=== PATIENT | female | born 1960 | race Caucasian/White ===

== ENCOUNTER 2021-09-20 02:25 | Day surgery (SDC) | payer OTHER ==
[~2021-09-20 02:25] MED LIST: CIPR500 PO; DIPATR PO; IBUP600 PO; IBUP800; IBUP800 PO; LOPE2C PO; METR59TL TOP; NITRSPRAY SL; Nitrostat0.4 MG SL; SULTRIDS PO; TRIA80TC
== END 2021-09-20 22:59 | disposition home or self-care (01) ==
LOC: WOUND 02:25
DX: I83.028 Varicose veins of left lower extremity with ulcer other part of lower leg (principal); L97.828 Non-pressure chronic ulcer of other part of left lower leg with other specified severity; E11.51 Type 2 diabetes mellitus with diabetic peripheral angiopathy without gangrene; I70.203 Unspecified atherosclerosis of native arteries of extremities, bilateral legs; L03.116 Cellulitis of left lower limb; I10 Essential (primary) hypertension; Z88.0 Allergy status to penicillin
CPT/HCPCS: G0463

== ENCOUNTER 2021-09-23 01:35 | Day surgery (SDC) | payer OTHER | END 2021-09-23 23:22 | disposition home or self-care (01) | LOC: WOUND 01:35 | DX: I83.028 Varicose veins of left lower extremity with ulcer other part of lower leg (principal); L97.829 Non-pressure chronic ulcer of other part of left lower leg with unspecified severity; I87.2 Venous insufficiency (chronic) (peripheral); I70.203 Unspecified atherosclerosis of native arteries of extremities, bilateral legs | CPT/HCPCS: 82947 ==

== ENCOUNTER 2021-09-23 16:49 | Emergency (ER) | payer OTHER ==
[~2021-09-23] VITALS: Ht 154.9 cm; Wt 115.7 kg
[2021-09-23 18:26] LABS: BASOPHILS ABSOLUTE AUTO 0.03 K/mm3 (0.00-0.23); BASOPHILS PERCENT AUTO 0 % (0-2); EOSINOPHILS ABSOLUTE AUTO 0.07 K/mm3 (0.00-0.68); EOSINOPHILS PERCENT AUTO 1 % (0-6); Hematocrit 42.6 % (33.0-51.0); Hemoglobin 12.7 g/dL (11.5-16.0); IMMATURE GRAN ABSOLUTE AUTO 0.04 K/mm3 (0.00-0.10); IMMATURE GRAN PERCENT AUTO 1 % (0-1); LYMPHOCYTES ABSOLUTE AUTO 1.97 K/mm3 (0.84-5.20); LYMPHOCYTES PERCENT AUTO 26 % (21-46); MONOCYTES ABSOLUTE AUTO 0.51 K/mm3 (0.16-1.47); MONOCYTES PERCENT AUTO 7 % (4-13); Mean Corpuscular HGB 23.4 pg (26.0-34.0); Mean Corpuscular HGB Conc 29.8 g/dL (31.5-36.5); Mean Corpuscular Volume 79 fL (80-100); NEUTROPHILS ABSOLUTE AUTO 4.83 K/mm3 (1.96-9.15); NEUTROPHILS PERCENT AUTO 65 % (41-73); Platelet Count 434 K/mm3 (150-400); RDW Coefficient Variation 15.4 % (11.7-14.2); RDW Standard Deviation 43.7 fL (35.1-46.3); Red Blood Cell Count 5.43 M/mm3 (3.80-5.20); White Blood Cell Count 7.45 K/mm3 (4.00-11.30)
[2021-09-23 18:48] LABS: Alanine Aminotransfer (ALT/SGP 58 U/L (12-78); Albumin, Blood 3.2 g/dL (3.4-5.0); Albumin/Globulin Ratio 0.7 (0.8-1.8); Alk Phos 181 U/L (50-136); Anion Gap 11 mmol/L (6-16); Aspartate Aminotrans (AST/SGOT 49 U/L (12-37); Beta-hydroxybutyrate 19.5 mg/dL (0.2-2.8); Bilirubin, Total 0.4 mg/dL (0.1-1.0); Blood Urea Nitrogen 22 mg/dL (8-24); Bun/Creatinine Ratio 33.4 (12.0-20.0); CO2, Blood 27 mmol/L (21-32); Calcium, Blood 9.4 mg/dL (8.5-10.1); Chloride, Blood 95 mmol/L (98-108); Creatinine, Blood 0.66 mg/dL (0.40-1.00); Globulin, Blood 4.4 g/dL (2.2-4.0); Glomerular Filtration Rate >60 (60-); Glucose, Blood 496 mg/dL (70-99); Potassium, Blood 3.7 mmol/L (3.5-5.5); Sodium, Blood 133 mmol/L (136-145); Total Protein, Blood 7.6 g/dL (6.4-8.2)
[2021-09-23 20:34] LABS: Base Excess Venous 1.5 mmol/L; Bicarbonate Venous 25.3 mmol/L (24.0-30.0); PCO2 Venous 42.9 mmHg (38-42); PO2 Venous 59.8 mmHg (38-42)
[2021-09-23 21:09] LABS: Source, Urine Clean Catch
[2021-09-23 21:11] LABS: Bilirubin, Urine Neg (Neg); Blood, Urine 1+ (Neg); Glucose Qualitative, Urine 4+ (Neg); Ketones, Urine 3+ (Neg); Leukocyte Esterase, Urine 2+ (Neg); Nitrite, Urine Neg (Neg); Protein, Urine 2+ (Neg); Specific Gravity, Urine 1.015 (1.003-1.022); Urobilinogen, Urine NORM (Normal)
[2021-09-23 21:17] LABS: Appearance, Urine Hazy (Clear); Color, Urine Pale Yellow (P-Yellow)
[2021-09-23 21:18] LABS: Bacteria Many /hpf
[2021-09-23 21:19] LABS: Squamous Epithelial Cells Mod /hpf (Few); White Blood Cells, Urine 25-50 /hpf (0-5); Yeast/Fungi Urine Few /hpf
== END 2021-09-23 23:23 | disposition home or self-care (01) ==
LOC: ER 16:49
PROVIDERS: Physician Assistant
DX: E11.65 Type 2 diabetes mellitus with hyperglycemia (principal); Z88.0 Allergy status to penicillin; Z79.899 Other long term (current) drug therapy; K21.9 Gastro-esophageal reflux disease without esophagitis; I25.2 Old myocardial infarction; F17.200 Nicotine dependence, unspecified, uncomplicated
CPT/HCPCS: 80053; 81001; 82010; 82803; 82947; 85025; 87077; 87086; 87186; 93005; 93010; 99285-25; J7030

== ENCOUNTER 2021-09-27 02:07 | Day surgery (SDC) | payer OTHER | END 2021-09-27 23:30 | disposition home or self-care (01) | LOC: WOUND 02:07 | DX: L97.821 Non-pressure chronic ulcer of other part of left lower leg limited to breakdown of skin (principal); I87.2 Venous insufficiency (chronic) (peripheral); E11.51 Type 2 diabetes mellitus with diabetic peripheral angiopathy without gangrene; I70.203 Unspecified atherosclerosis of native arteries of extremities, bilateral legs; E11.65 Type 2 diabetes mellitus with hyperglycemia; R60.0 Localized edema; L03.116 Cellulitis of left lower limb | CPT/HCPCS: 82947 ==

== ENCOUNTER 2021-10-04 01:26 | Day surgery (SDC) | payer OTHER | END 2021-10-04 23:48 | disposition home or self-care (01) | LOC: WOUND 01:26 | DX: L97.221 Non-pressure chronic ulcer of left calf limited to breakdown of skin (principal); I87.2 Venous insufficiency (chronic) (peripheral); E11.51 Type 2 diabetes mellitus with diabetic peripheral angiopathy without gangrene; I70.203 Unspecified atherosclerosis of native arteries of extremities, bilateral legs; L03.116 Cellulitis of left lower limb; R60.0 Localized edema; E11.65 Type 2 diabetes mellitus with hyperglycemia | CPT/HCPCS: 82947; G0463 ==

== ENCOUNTER 2023-02-20 19:48 | Inpatient (IN) | payer OTHER ==
[~2023-02-20] VITALS: Ht 154.9 cm; Wt 98.9 kg
[2023-02-20 22:26] LABS: BASOPHILS ABSOLUTE AUTO 0.06 K/mm3 (0.00-0.23); BASOPHILS PERCENT AUTO 0 % (0-2); EOSINOPHILS ABSOLUTE AUTO 0.46 K/mm3 (0.00-0.68); EOSINOPHILS PERCENT AUTO 3 % (0-6); Hematocrit 36.1 % (33.0-51.0); Hemoglobin 11.2 g/dL (11.5-16.0); IMMATURE GRAN ABSOLUTE AUTO 0.11 K/mm3 (0.00-0.10); IMMATURE GRAN PERCENT AUTO 1 % (0-1); LYMPHOCYTES ABSOLUTE AUTO 2.43 K/mm3 (0.84-5.20); LYMPHOCYTES PERCENT AUTO 17 % (21-46); MONOCYTES ABSOLUTE AUTO 0.88 K/mm3 (0.16-1.47); MONOCYTES PERCENT AUTO 6 % (4-13); Mean Corpuscular HGB 25.6 pg (26.0-34.0); Mean Corpuscular Volume 82 fL (80-100); Mean Platelet Volume 8.6 fL (9.1-12.4); NEUTROPHILS ABSOLUTE AUTO 10.43 K/mm3 (1.96-9.15); NEUTROPHILS PERCENT AUTO 73 % (41-73); Platelet Count 812 K/mm3 (150-400); RDW Coefficient Variation 19.3 % (11.7-14.2); RDW Standard Deviation 57.6 fL (35.1-46.3); Red Blood Cell Count 4.38 M/mm3 (3.80-5.20); White Blood Cell Count 14.37 K/mm3 (4.00-11.30)
[2023-02-20 22:54] LABS: Magnesium, Blood 1.6 mg/dL (1.6-2.4)
[2023-02-20 22:58] LABS: Albumin, Blood 2.6 g/dL (3.4-5.0); Albumin/Globulin Ratio 0.6 (0.8-1.8); Bilirubin, Total 0.2 mg/dL (0.1-1.0); Bun/Creatinine Ratio 21.4 (12.0-20.0); Calcium, Blood 9.4 mg/dL (8.5-10.1); Creatinine, Blood 0.52 mg/dL (0.40-1.00); Globulin, Blood 4.2 g/dL (2.2-4.0); Potassium, Blood 2.6 mmol/L (3.5-5.5); Thyroid Stimulating Hormone 1.4 uIU/mL (0.360-4.800); Total Protein, Blood 6.8 g/dL (6.4-8.2)
[2023-02-20 23:04] LABS: Source, Urine Straight Cath
[2023-02-20 23:05] LABS: Influenza A, PCR NEGATIVE (NEGATIVE); Influenza B, PCR NEGATIVE (NEGATIVE); Resp Syncytial Virus, PCR NEGATIVE (NEGATIVE); SARS-Cov-2 (COVID-19) PCR, MMC NEGATIVE (NEGATIVE)
[2023-02-20 23:30] LABS: Appearance, Urine Cloudy (Clear); Bilirubin, Urine Neg (Neg); Blood, Urine 1+ (Neg); Color, Urine Yellow (P-Yellow); Glucose Qualitative, Urine Neg (Neg); Ketones, Urine Neg (Neg); Leukocyte Esterase, Urine 2+ (Neg); Nitrite, Urine Pos (Neg); Protein, Urine 2+ (Neg); Urobilinogen, Urine NORM (Normal)
[2023-02-20 23:53] LABS: Bacteria Many /hpf; Red Blood Cells, Urine 0-2 /hpf (0-2); Squamous Epithelial Cells Many /hpf (Few); White Blood Cells, Urine 50-100 /hpf (0-5)
[2023-02-21 02:11] LABS: BASOPHILS ABSOLUTE AUTO 0.05 K/mm3 (0.00-0.23); BASOPHILS PERCENT AUTO 0 % (0-2); EOSINOPHILS ABSOLUTE AUTO 0.33 K/mm3 (0.00-0.68); EOSINOPHILS PERCENT AUTO 2 % (0-6); Hematocrit 36.3 % (33.0-51.0); Hemoglobin 11.1 g/dL (11.5-16.0); IMMATURE GRAN ABSOLUTE AUTO 0.11 K/mm3 (0.00-0.10); IMMATURE GRAN PERCENT AUTO 1 % (0-1); LYMPHOCYTES ABSOLUTE AUTO 2.16 K/mm3 (0.84-5.20); LYMPHOCYTES PERCENT AUTO 16 % (21-46); MONOCYTES ABSOLUTE AUTO 0.81 K/mm3 (0.16-1.47); MONOCYTES PERCENT AUTO 6 % (4-13); Mean Corpuscular HGB 25.3 pg (26.0-34.0); Mean Corpuscular HGB Conc 30.6 g/dL (31.5-36.5); Mean Corpuscular Volume 83 fL (80-100); Mean Platelet Volume 8.3 fL (9.1-12.4); NEUTROPHILS ABSOLUTE AUTO 10.23 K/mm3 (1.96-9.15); NEUTROPHILS PERCENT AUTO 75 % (41-73); Platelet Count 704 K/mm3 (150-400); RDW Coefficient Variation 19.7 % (11.7-14.2); RDW Standard Deviation 58.8 fL (35.1-46.3); Red Blood Cell Count 4.39 M/mm3 (3.80-5.20); White Blood Cell Count 13.69 K/mm3 (4.00-11.30)
[2023-02-21 02:28] LABS: International Normalized Ratio 0.94; Prothrombin Time Results 9.9 Sec (9.7-11.5)
[2023-02-21 02:43] LABS: Albumin, Blood 2.4 g/dL (3.4-5.0); Albumin/Globulin Ratio 0.6 (0.8-1.8); Bilirubin, Total 0.2 mg/dL (0.1-1.0); Bun/Creatinine Ratio 20.6 (12.0-20.0); Calcium, Blood 8.9 mg/dL (8.5-10.1); Creatinine, Blood 0.49 mg/dL (0.40-1.00); Globulin, Blood 3.9 g/dL (2.2-4.0); Total Protein, Blood 6.3 g/dL (6.4-8.2)
[2023-02-21 03:02] VITALS: BP 148/86
--- NOTE | 2023-02-21 04:35 | NUR ---
ADMIT/SHIFT SUMMARY: PATIENT ADMIT TO PCU 19 AROUND 0345. USED SLIDE SHEET TO TRANSFER PATIENT IS IMMOBILE AT BASELINE AND LIVES IN A VERY SMALL TRAILER WHICH SHE IS UNABLE TO MOVE AROUND IN BECAUSE OF HER "STUFF". SHE STATES SHE JUST SITS IN HER RECLINER. DENIES NUMBNESS/TINGLING. COMPLAINS OF BILATERAL KNEE PAIN, SAYING "THEY HIT MY KNEES TRANSFERING ME TO THE HOSPITAL". MEDICATED PER EMAR WITH TYLENOL. ALERT AND ORIENTED X4. AT TIMES SAYING OFF THE WALL COMMENTS. ON ROOM AIR SATING MID 90'S. LUNGS SOUNDING CLEAR AND DIM IN BASES. DENIES SOB/COUGH. EVEN AND UNLABORED RESPIRATIONS. NO TELE. BP STABLE. DENIES CHEST PAIN/PRESSURE. NO EDEMA NOTED. PPP. BOWEL TONES PRESENT. LOOSE STOOLS REPORTED PER ED. PURWICK IN PLACE. ATTENDS C/D/I. PATIENT STATES SHE USES UNDERWEAR AT HOME TO GO TO BATHROOM. SKIN COVERED IN RED RASH/EXCORATIONS. OPEN PRESSURE WOUNDS TO BILATERAL GLUTERAL FOLDS, LEFT OUTER HIP, UPPER RIGHT BACK, AND BILATERAL HEELS. OTHER WOUNDS NOTED TO BILATERAL BREASTS AND RIGHT THUMB. RED/EXCORIATIONS IN ALL FOLDS WITH SCRATCH BOYKIN THROUGHOUT. ALL WOUNDS DOCUMENTED IN CHART. CLEAN AND DRESSED. BED BATH ON ARRIVAL. HEEL PROTECTORS IN PLACE. NS AND IV KCL INFUSING PER EMAR. ABX INFUSED. CALL LIGHT IN REACH. UNABLE TO COMPLETE MED REC, PHARMACY CLOSED AT THIS TIME AND PATIENT DOES NOT RECALL MEDICATIONS.
--- NOTE | 2023-02-21 06:22 | NUR ---
PATIENT REQUESTING HAIR BE TRIMMED BY RETAIL PROPERTY MANAGER. RETAIL PROPERTY MANAGER ABLE TO TRIM PATIENTS HAIR TO LIKING. POTASSIUM INFUSED PER EMAR. NS CONTINUES TO INFUSE. VITAL SIGNS REMAIN STABLE. Q2 TURNING AND NEEDED. PATIENT SLEEPING AT THIS TIME.
[2023-02-21 07:58] VITALS: BP 115/94
[2023-02-21 08:18] LABS: BASOPHILS ABSOLUTE AUTO 0.04 K/mm3 (0.00-0.23); BASOPHILS PERCENT AUTO 0 % (0-2); EOSINOPHILS ABSOLUTE AUTO 0.21 K/mm3 (0.00-0.68); EOSINOPHILS PERCENT AUTO 2 % (0-6); Hematocrit 34.6 % (33.0-51.0); Hemoglobin 10.9 g/dL (11.5-16.0); IMMATURE GRAN PERCENT AUTO 1 % (0-1); LYMPHOCYTES ABSOLUTE AUTO 2.26 K/mm3 (0.84-5.20); LYMPHOCYTES PERCENT AUTO 18 % (21-46); MONOCYTES ABSOLUTE AUTO 0.78 K/mm3 (0.16-1.47); MONOCYTES PERCENT AUTO 6 % (4-13); Mean Corpuscular HGB 25.5 pg (26.0-34.0); Mean Corpuscular HGB Conc 31.5 g/dL (31.5-36.5); Mean Corpuscular Volume 81 fL (80-100); Mean Platelet Volume 8.3 fL (9.1-12.4); NEUTROPHILS ABSOLUTE AUTO 9.47 K/mm3 (1.96-9.15); NEUTROPHILS PERCENT AUTO 74 % (41-73); Platelet Count 744 K/mm3 (150-400); RDW Coefficient Variation 19.4 % (11.7-14.2); RDW Standard Deviation 57.3 fL (35.1-46.3); Red Blood Cell Count 4.28 M/mm3 (3.80-5.20); White Blood Cell Count 12.86 K/mm3 (4.00-11.30)
[2023-02-21 09:01] LABS: Albumin, Blood 2.3 g/dL (3.4-5.0); Albumin/Globulin Ratio 0.6 (0.8-1.8); Bilirubin, Total 0.2 mg/dL (0.1-1.0); Calcium, Blood 8.6 mg/dL (8.5-10.1); Creatinine, Blood 0.5 mg/dL (0.40-1.00); Potassium, Blood 3.5 mmol/L (3.5-5.5); Total Protein, Blood 6.3 g/dL (6.4-8.2)
--- NOTE | 2023-02-21 10:41 | NUR ---
TRANSFER REPORT CALLED TO JAYASHREE FRANCISCO ON MEDICAL FLOOR PT TO BE TRANSFERED VIA BED.
--- NOTE | 2023-02-21 11:58 | NUR ---
PT ARRIVED TO ROOM 359 AOX4 AND COOPERATIVE OF CARE. PT SETTLED INTO ROOM WITH CALL LIGHT IN REACH AND BED ALARM IN PLACE. NO DISTRESS NOTED WILL CONTINUE TO MONITOR.
[2023-02-21 14:48] VITALS: BP 115/73
[2023-02-21] MEDS ORDERED: ATOR80 PO (15:03)
[2023-02-21] MEDS ORDERED: METO25ER PO (15:05)
[2023-02-21] MEDS ORDERED: METF500 PO (15:06)
[2023-02-21] MEDS ORDERED: ALOGLIPTIN25 M7 PO (15:08)
[2023-02-21] MEDS ORDERED: LOSA50 PO (15:10)
[2023-02-21] MEDS ORDERED: OMEP20ER PO (15:10)
--- NOTE | 2023-02-21 16:42 | NUR ---
PT HAS HAD NO ACUTE CHANGES. UPON FIRST ASSESSMENT SHE SEEMS MORE ALERT AND ORIENTED AROUND 3. YOU SPEND TIME WITH THE PT SHE SAYS A LOT OF THINGS THAT ARE RANDOM AND DO NOT MAKE SENSE. WITHOUT FAMILY INPUT CAN NOT TELL IF THIS IS HER BASELINE OR NOT. PT COMPLAINED OF OVERALL BODY PAIN AND WAS TREATED PER EMAR. PT ALSO HAD AN EPISODE OF LOOSE STOOL. IF WE HAVE ANYMORE DOCTOR WILL BE NOTIFIED. NO DISTRESS NOTED AT THIS TIME AND PT IS CALLING APPROPRIATELY. WILL CONTINUE TO MONITOR.
[2023-02-21 19:57] VITALS: BP 128/73
[2023-02-22 04:55] VITALS: BP 165/83
--- NOTE | 2023-02-22 05:19 | NUR ---
REPORT RECEIVED, A/O VSS PLEASENT PT WHO MAKES NEEDS KNOWN, HAS PAIN TO LOWER EXTREMITIES AND DESIRAE OUT WHEN SHE IS REPOSITIONED, PT CAN VERY EASILY BE DISTRACTED OR REDIRECTED WHEN SHOWING ANXIETY OR PAIN, HER BEHAVIOR IS SLIGHTLY DISPROPORTIONATE IN RESPONSE. PT GAIVEN PAIN MEDICATION REPOSITIONED AND ALLOWED TO SLEEP. PT SLEPT FOR SEVERAL HOURS, BED DRY AND PURWIK IN PLACE.
[2023-02-22 07:43] VITALS: BP 121/78
[2023-02-22 08:04] LABS: BASOPHILS ABSOLUTE AUTO 0.06 K/mm3 (0.00-0.23); BASOPHILS PERCENT AUTO 1 % (0-2); EOSINOPHILS PERCENT AUTO 5 % (0-6); Hematocrit 31.2 % (33.0-51.0); Hemoglobin 9.5 g/dL (11.5-16.0); IMMATURE GRAN ABSOLUTE AUTO 0.13 K/mm3 (0.00-0.10); IMMATURE GRAN PERCENT AUTO 1 % (0-1); LYMPHOCYTES ABSOLUTE AUTO 2.14 K/mm3 (0.84-5.20); LYMPHOCYTES PERCENT AUTO 20 % (21-46); MONOCYTES ABSOLUTE AUTO 0.63 K/mm3 (0.16-1.47); MONOCYTES PERCENT AUTO 6 % (4-13); Mean Corpuscular HGB 25.1 pg (26.0-34.0); Mean Corpuscular HGB Conc 30.4 g/dL (31.5-36.5); Mean Corpuscular Volume 83 fL (80-100); Mean Platelet Volume 8.6 fL (9.1-12.4); NEUTROPHILS ABSOLUTE AUTO 7.37 K/mm3 (1.96-9.15); NEUTROPHILS PERCENT AUTO 68 % (41-73); Platelet Count 635 K/mm3 (150-400); RDW Coefficient Variation 19.7 % (11.7-14.2); RDW Standard Deviation 58.9 fL (35.1-46.3); Red Blood Cell Count 3.78 M/mm3 (3.80-5.20); White Blood Cell Count 10.83 K/mm3 (4.00-11.30)
[2023-02-22 08:33] LABS: Albumin/Globulin Ratio 0.6 (0.8-1.8); Bilirubin, Total 0.1 mg/dL (0.1-1.0); Bun/Creatinine Ratio 22.3 (12.0-20.0); Calcium, Blood 8.2 mg/dL (8.5-10.1); Creatinine, Blood 0.49 mg/dL (0.40-1.00); Globulin, Blood 3.6 g/dL (2.2-4.0); Potassium, Blood 3.6 mmol/L (3.5-5.5); Total Protein, Blood 5.6 g/dL (6.4-8.2)
[2023-02-22 15:37] VITALS: BP 132/90
[2023-02-22 19:29] VITALS: BP 91/63
--- NOTE | 2023-02-22 20:33 | NUR ---
SHIFT SUMMARY: GIUSEPPE IS A&OX3. VSS, NO ACUTE EVENTS THIS SHIFT. SHE IS TOLERATING PO INTAKE WELL, REPORTS MINIMAL PAIN RELIEF WITH THE TRAMADOL, AND USES THE CALL LIGHT APPROPRIATELY. ATTENDS IN PLACE FOR URINARY AND FECAL INCONTINENCE, HOWEVER PT WAS ABLE TO PURPOSEFULLY URINATE THIS SHIFT. IV TO L AC PATENT, FLUIDS INFUSING. SHE IS LYING IN BED WITH THE CALL LIGHT IN REACH. REPORT WAS GIVEN TO CHAPERON RN.
[2023-02-23 04:41] VITALS: BP 106/71
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
[2023-02-23 07:21] VITALS: BP 143/88
[2023-02-23 08:27] LABS: BASOPHILS ABSOLUTE AUTO 0.05 K/mm3 (0.00-0.23); BASOPHILS PERCENT AUTO 1 % (0-2); EOSINOPHILS ABSOLUTE AUTO 0.64 K/mm3 (0.00-0.68); EOSINOPHILS PERCENT AUTO 7 % (0-6); Hematocrit 32.1 % (33.0-51.0); Hemoglobin 9.8 g/dL (11.5-16.0); IMMATURE GRAN ABSOLUTE AUTO 0.16 K/mm3 (0.00-0.10); IMMATURE GRAN PERCENT AUTO 2 % (0-1); LYMPHOCYTES ABSOLUTE AUTO 1.78 K/mm3 (0.84-5.20); LYMPHOCYTES PERCENT AUTO 19 % (21-46); MONOCYTES ABSOLUTE AUTO 0.54 K/mm3 (0.16-1.47); MONOCYTES PERCENT AUTO 6 % (4-13); Mean Corpuscular HGB 25.1 pg (26.0-34.0); Mean Corpuscular HGB Conc 30.5 g/dL (31.5-36.5); Mean Corpuscular Volume 82 fL (80-100); Mean Platelet Volume 8.3 fL (9.1-12.4); NEUTROPHILS ABSOLUTE AUTO 6.11 K/mm3 (1.96-9.15); NEUTROPHILS PERCENT AUTO 66 % (41-73); Platelet Count 563 K/mm3 (150-400); RDW Coefficient Variation 19.2 % (11.7-14.2); RDW Standard Deviation 57.7 fL (35.1-46.3); White Blood Cell Count 9.28 K/mm3 (4.00-11.30)
[2023-02-23 08:40] LABS: Calcium, Blood 8.8 mg/dL (8.5-10.1); Creatinine, Blood 0.4 mg/dL (0.40-1.00); Potassium, Blood 3.7 mmol/L (3.5-5.5)
[2023-02-23 16:10] VITALS: BP 136/75
--- NOTE | 2023-02-23 18:40 | NUR ---
SHIFT SUMMARY PT IS ALERT AND ORIENTED. DELUSIONAL. DIARRHEA. NO ACUTE CHANGES. BED IS IN THE LOWEST POSITION WITH CALL LIGHT IN REACH
[2023-02-23 20:10] VITALS: BP 120/83
[2023-02-24 03:52] VITALS: BP 176/70
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
[2023-02-24 07:17] VITALS: BP 116/71
[2023-02-24 08:04] LABS: BASOPHILS ABSOLUTE AUTO 0.07 K/mm3 (0.00-0.23); BASOPHILS PERCENT AUTO 1 % (0-2); EOSINOPHILS ABSOLUTE AUTO 0.79 K/mm3 (0.00-0.68); EOSINOPHILS PERCENT AUTO 8 % (0-6); Hematocrit 31.7 % (33.0-51.0); Hemoglobin 9.7 g/dL (11.5-16.0); IMMATURE GRAN ABSOLUTE AUTO 0.22 K/mm3 (0.00-0.10); IMMATURE GRAN PERCENT AUTO 2 % (0-1); LYMPHOCYTES ABSOLUTE AUTO 2.47 K/mm3 (0.84-5.20); LYMPHOCYTES PERCENT AUTO 25 % (21-46); MONOCYTES ABSOLUTE AUTO 0.55 K/mm3 (0.16-1.47); MONOCYTES PERCENT AUTO 6 % (4-13); Mean Corpuscular HGB 25.3 pg (26.0-34.0); Mean Corpuscular HGB Conc 30.6 g/dL (31.5-36.5); Mean Corpuscular Volume 83 fL (80-100); Mean Platelet Volume 8.7 fL (9.1-12.4); NEUTROPHILS ABSOLUTE AUTO 5.73 K/mm3 (1.96-9.15); NEUTROPHILS PERCENT AUTO 58 % (41-73); Platelet Count 618 K/mm3 (150-400); RDW Coefficient Variation 19.2 % (11.7-14.2); RDW Standard Deviation 58.1 fL (35.1-46.3); Red Blood Cell Count 3.84 M/mm3 (3.80-5.20); White Blood Cell Count 9.83 K/mm3 (4.00-11.30)
[2023-02-24 08:24] LABS: Bun/Creatinine Ratio 43.9 (12.0-20.0); Calcium, Blood 8.8 mg/dL (8.5-10.1); Creatinine, Blood 0.46 mg/dL (0.40-1.00); Potassium, Blood 3.5 mmol/L (3.5-5.5)
--- NOTE | 2023-02-24 09:00 | NUR ---
pt laying in bed awake a/ox 2 to 3, she is making nonsensical statements, but understood her medications, is cooperative with care, follows commands, lungs are clear a bit dim in bases, resp even and unlabored, on r/a, no cough noted, hrr, murmur noted, 1 to 2+ edema noted to b/l le, ppp+2, cap refill <3sec, vs stable, afebrile, piv site is clear and patent to lac, infusing ns@75mls/hr, btx4, abd round soft nontender, voids via purwick at this time, incont of stool, briefs in place, has multiple wounds to skin, dressings in place, moves arms, can move feet, but very weak, two person to turn, dianna, call light in reach.
[2023-02-24 17:13] VITALS: BP 133/71
--- NOTE | 2023-02-24 19:08 | NUR ---
pt continues to say off things not in line with conversation, when asked a direct question she goes on to something else and has to be redirected several times to get a straight answer, had a bedbath today, medicated for pain several times, no further changes this shift. call light in reach.
[2023-02-24 19:21] VITALS: BP 131/97
[2023-02-25 02:58] VITALS: BP 136/94
--- NOTE | 2023-02-25 04:25 | NUR ---
SHIFT SUMMARY PT ALERT AND ORIENTED TO PERSON, PLACE, AND SELF. TALKING NONSENSICAL AT TIMES. PT IS COMPLIANT WITH CARE. PT C/O INSOMNIA; MEDICATED PER EMAR. DENIES CHEST PAIN/PRESSURE/TIGHTNESS AT THIS TIME. PT HAS HAD NO COMPLAINT OF PAIN AT THIS TIME. BED IS LOCKED IN LOWEST POSITION, CALL LIGHT IN REACH. NO ACUTE CHANGES NOTED, NO S/S OF DISTRESS AT THIS TIME.
[2023-02-25 05:37] LABS: BASOPHILS ABSOLUTE AUTO 0.09 K/mm3 (0.00-0.23); BASOPHILS PERCENT AUTO 1 % (0-2); EOSINOPHILS ABSOLUTE AUTO 0.85 K/mm3 (0.00-0.68); EOSINOPHILS PERCENT AUTO 7 % (0-6); Hematocrit 32.1 % (33.0-51.0); Hemoglobin 10.2 g/dL (11.5-16.0); IMMATURE GRAN ABSOLUTE AUTO 0.33 K/mm3 (0.00-0.10); IMMATURE GRAN PERCENT AUTO 3 % (0-1); LYMPHOCYTES ABSOLUTE AUTO 2.53 K/mm3 (0.84-5.20); LYMPHOCYTES PERCENT AUTO 20 % (21-46); MONOCYTES ABSOLUTE AUTO 0.77 K/mm3 (0.16-1.47); MONOCYTES PERCENT AUTO 6 % (4-13); Mean Corpuscular HGB 25.9 pg (26.0-34.0); Mean Corpuscular HGB Conc 31.8 g/dL (31.5-36.5); Mean Corpuscular Volume 82 fL (80-100); Mean Platelet Volume 8.8 fL (9.1-12.4); NEUTROPHILS PERCENT AUTO 64 % (41-73); Platelet Count 651 K/mm3 (150-400); RDW Standard Deviation 56.2 fL (35.1-46.3); Red Blood Cell Count 3.94 M/mm3 (3.80-5.20); White Blood Cell Count 12.57 K/mm3 (4.00-11.30)
[2023-02-25 06:11] LABS: Bun/Creatinine Ratio 59.1 (12.0-20.0); Calcium, Blood 9.2 mg/dL (8.5-10.1); Creatinine, Blood 0.47 mg/dL (0.40-1.00); Potassium, Blood 4.1 mmol/L (3.5-5.5)
[2023-02-25 07:18] VITALS: BP 99/71
[2023-02-25 15:48] VITALS: BP 112/74
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
[2023-02-25 19:13] VITALS: BP 117/81
[2023-02-26 03:06] VITALS: BP 125/77
--- NOTE | 2023-02-26 04:38 | NUR ---
SHIFT SUMMARY PT IS ALERT AND ORIENTED TO PERSON, PLACE, SELF. SHE HAS NON-SENSICAL SPEECH AT TIMES. PAIN ASSESSED; MEDICATED PER EMAR X1. REDDENED AREA IN GROIN CLEANED AND MEDICATED POWDER APPLIED. PT REQUESTED FOR SOMETHING TO HELP WITH HER INSOMNIA; MELATONIN ADMINISTERED PER EMAR. SHE DENIES CHEST PAIN/PRESSURE/TIGHTNESS AT THIS TIME. SHE HAS SLEPT ON AND OFF T/O SHIFT; RESPIRATIONS EQUAL AND UNLABORED. PT IS INCONTINENT WITH PUREWICK IN PLACE. BED IS LOCKED IN THE LOWEST POSITION WITH CALL LIGHT IN REACH. ACUTE CHANGES OR S/S OF DISTRESS AT THIS TIME.
[2023-02-26 04:52] LABS: BASOPHILS ABSOLUTE AUTO 0.08 K/mm3 (0.00-0.23); BASOPHILS PERCENT AUTO 1 % (0-2); EOSINOPHILS ABSOLUTE AUTO 0.81 K/mm3 (0.00-0.68); EOSINOPHILS PERCENT AUTO 8 % (0-6); Hematocrit 31.6 % (33.0-51.0); Hemoglobin 9.7 g/dL (11.5-16.0); IMMATURE GRAN ABSOLUTE AUTO 0.25 K/mm3 (0.00-0.10); IMMATURE GRAN PERCENT AUTO 3 % (0-1); LYMPHOCYTES ABSOLUTE AUTO 2.83 K/mm3 (0.84-5.20); LYMPHOCYTES PERCENT AUTO 29 % (21-46); MONOCYTES ABSOLUTE AUTO 0.57 K/mm3 (0.16-1.47); MONOCYTES PERCENT AUTO 6 % (4-13); Mean Corpuscular HGB 25.7 pg (26.0-34.0); Mean Corpuscular HGB Conc 30.7 g/dL (31.5-36.5); Mean Corpuscular Volume 84 fL (80-100); Mean Platelet Volume 8.8 fL (9.1-12.4); NEUTROPHILS PERCENT AUTO 53 % (41-73); Platelet Count 572 K/mm3 (150-400); RDW Coefficient Variation 19.4 % (11.7-14.2); RDW Standard Deviation 58.4 fL (35.1-46.3); Red Blood Cell Count 3.78 M/mm3 (3.80-5.20); White Blood Cell Count 9.64 K/mm3 (4.00-11.30)
[2023-02-26 05:12] LABS: Bun/Creatinine Ratio 53.8 (12.0-20.0); Calcium, Blood 9.2 mg/dL (8.5-10.1); Creatinine, Blood 0.56 mg/dL (0.40-1.00); Potassium, Blood 3.8 mmol/L (3.5-5.5)
[2023-02-26 07:30] VITALS: BP 113/68
[2023-02-26 14:36] VITALS: BP 117/81
--- NOTE | 2023-02-26 18:27 | NUR ---
SHIFT SUMMARY PT AxOx4 WITH INTERMITTENT NONSENSICAL COMMENTS. PT IS PLEASANT AND COOPERATIVE WITH CARE. PT WORKED WITH PHYSICAL AND OCCUPATIONAL THERAPY TODAY. WAS UNABLE TO STAND UP OR AMBULATE D/T SEVERE BLE DECONDITIONING. FLUIDS DC'D. PT RECEIVED IV ABX. WOUND CARE AND DRESSING CHANGES COMPLETED THIS SHIFT. PT WAS MEDICATED FOR PAIN x1 WITH REPORTED RELIEF. PT IS CURRENTLY SITTING UP IN BED FINISHING DINNER. DENIES ANY NEEDS AT THIS TIME. CALL LIGHT IN REACH.
[2023-02-26 19:53] VITALS: BP 139/77
--- NOTE | 2023-02-27 03:33 | NUR ---
SHIFT SUMMARY: PT IS ALERT AND ORIENTED WITH SOME CONFUSION AND FLIGHT OF IDEAS, HISTORY OF DEVELOPMENTAL DELAY. PT IS CALM AND COOPERATIVE WITH CARE. PT CALLS APPROPRIATELY. PT NOT STRONG ENOUGH TO GET OUT OF BED AT THIS TIME. PT INCONTINENT, PUREWICK SET TO SUCTION. PT REPORTS PAIN ON ONE OCCASION, GAVE PRN TRAMADOL. PT DENIES NAUSEA, VOMITING, AND SOB. PT REQUESTED SLEEPING PILL, GAVE PRN MELATONIN. PT SLEPT MUCH OF THE NIGHT WHEN NOT DISTURBED. PT'S IV LEAKING, NEW IV PLACED AND OLD ONE REMOVED. NO ACUTE CHANGES OR COMPLICATIONS OVERNIGHT. BED IN LOW POSITION, CALL LIGHT WITHIN REACH. WILL CONTINUE TO MONITOR.
[2023-02-27 04:33] VITALS: BP 114/70
[2023-02-27 04:56] LABS: BASOPHILS ABSOLUTE AUTO 0.07 K/mm3 (0.00-0.23); BASOPHILS PERCENT AUTO 1 % (0-2); EOSINOPHILS ABSOLUTE AUTO 0.84 K/mm3 (0.00-0.68); EOSINOPHILS PERCENT AUTO 9 % (0-6); Hematocrit 31.7 % (33.0-51.0); Hemoglobin 9.7 g/dL (11.5-16.0); IMMATURE GRAN ABSOLUTE AUTO 0.14 K/mm3 (0.00-0.10); IMMATURE GRAN PERCENT AUTO 2 % (0-1); LYMPHOCYTES ABSOLUTE AUTO 2.61 K/mm3 (0.84-5.20); LYMPHOCYTES PERCENT AUTO 27 % (21-46); MONOCYTES ABSOLUTE AUTO 0.55 K/mm3 (0.16-1.47); MONOCYTES PERCENT AUTO 6 % (4-13); Mean Corpuscular HGB 25.6 pg (26.0-34.0); Mean Corpuscular HGB Conc 30.6 g/dL (31.5-36.5); Mean Corpuscular Volume 84 fL (80-100); Mean Platelet Volume 8.9 fL (9.1-12.4); NEUTROPHILS ABSOLUTE AUTO 5.32 K/mm3 (1.96-9.15); NEUTROPHILS PERCENT AUTO 56 % (41-73); Platelet Count 573 K/mm3 (150-400); RDW Coefficient Variation 19.4 % (11.7-14.2); RDW Standard Deviation 58.3 fL (35.1-46.3); Red Blood Cell Count 3.79 M/mm3 (3.80-5.20); White Blood Cell Count 9.53 K/mm3 (4.00-11.30)
[2023-02-27 05:17] LABS: Magnesium, Blood 1.7 mg/dL (1.6-2.4)
[2023-02-27 05:37] LABS: Albumin, Blood 2.3 g/dL (3.4-5.0); Albumin/Globulin Ratio 0.6 (0.8-1.8); Bilirubin, Total 0.2 mg/dL (0.1-1.0); Bun/Creatinine Ratio 53.7 (12.0-20.0); Calcium, Blood 9.2 mg/dL (8.5-10.1); Creatinine, Blood 0.52 mg/dL (0.40-1.00); Globulin, Blood 3.7 g/dL (2.2-4.0); Potassium, Blood 3.9 mmol/L (3.5-5.5)
[2023-02-27 07:16] VITALS: BP 119/81
[2023-02-27 14:51] VITALS: BP 130/77
--- NOTE | 2023-02-27 17:41 | NUR ---
SHIFT SUMMARY PT AXO TO SELF, PLACE AND SITUATION ALTHOUGH PT HAS FLIGHT OF IDEAS AND MAKES COMMENTS THAT ARE NOT REALITY BASED. DRESSINGS TO BLE, LEFT HIM AND RIGHT UPPER BACK CHANGED THIS SHIFT. PT MEDICATED FOR PAIN X1 THIS SHIFT. IV PATENT AND INFUSING PER EMAR. PT TOLERATING DIET ORDER WITH GOOD APPETITE. PURWICK IN PLACE, PATENT AND DRAINING TO SUCTION. TURN Q2, BED IN LOW POSITION, CALL LIGHT WITHIN REACH.
[2023-02-27 19:21] VITALS: BP 133/74
[2023-02-28 04:52] VITALS: BP 107/66
--- NOTE | 2023-02-28 06:52 | NUR ---
Shift Summary Pt AOx3-4, no strange comments this shift but she is talkative. Wound dressings were changed during the day yesterday and remain C/D/I. Incontinent voids being managed by gary. Pt c/o of 10/10 full body pain at start of shift but appeared calm and comfortable, after recieving Tramadol she slept well t/o the night. Rcving NS @ 125. Bedbound.
[2023-02-28 07:20] VITALS: BP 123/71
[2023-02-28 15:15] VITALS: BP 128/82
[2023-02-28 19:37] VITALS: BP 120/74
--- NOTE | 2023-02-28 20:06 | NUR ---
SHIFT SUMMARY- PT STILL AWAITING PLACEMENT. SHE IS ON CONTIONUIOUS IVF, NOT ON TELE. PT IS A LIFT PT TO GET FROM BED TO THE CHAIR. PUREWICK CATH IN PLACE. PT ALERT AND ORIENTED TO SELF, WITH LOTS OF CONFUSION. SOMETINGE SHE HAS PRESSURED SPEECH AND WORD SALAD, SHE WRITES NOTES TO STAFF THAT MAKE THE SAME AMOUNT OF SENSE. BEDSIDE REPORT COMPLETED WITH NIGHT RN. PT HEELS VISUALIZED UNDER THE MEPILEX THERE IS A WOUND ON THE RIGHT THE LEFT APEARS SWOLLEN. DRESSING ON BILATERAL BREASTS AND RIGHT UPPER BACK ARE C/D/I AT THE TIME OF SHIFT CHANGE. PT AC/HS BG AND RECIEVED INSULIN TODAY. PT IN BED, PUREWICK IN PLACE PATENT AND DRAINING CLEAR YELLOW URINE, IF INFUSING LFA, GERARDO LIGHT IN REACH NO S&S OF DISTRESS NOTED AT THE TIME OF BEDSIDE REPORT.
[2023-03-01 04:08] VITALS: BP 126/89
--- NOTE | 2023-03-01 05:03 | NUR ---
SHIFT SUMMARY: NO ACUTE EVENTS. ALERT, DELUSIONAL AND CONFUSED AT TIMES. C/O GENERALIZED 03/20 PAIN; MEDICATED PER EMAR WITH NO REPORTED RELIEF, BUT SLEPT SOUNDLY AFTER PAIN MED ADMINISTRATION. PUREWICK IN PLACE FOR URINARY INCONTINENCE. NO BM THIS SHIFT. HEEL PROTECTIVE DRESSINGS IN PLACE BILATERALLY. DRESSING ON BACK AND BILATERAL BREASTS INTACT.
[2023-03-01 07:15] VITALS: BP 124/87
[2023-03-01 15:18] VITALS: BP 131/77
--- NOTE | 2023-03-01 19:39 | NUR ---
SHIFT SUMMARY- PT ALERT AND ORIENTED TO SELF. SHE IS VERY CONFUSED. SHE CAN MAKE HER NEEDS KNOWN. SHE HAS SEVERAL DRESSINGS THAT NEED TO BE CHANGED THIS EVENING SHE PULLED THEM OFF LATER IN THE DAY. PASSED ON TO NIGHT RN IN BEDSIDE REPORT. CALLED DR FULTON THIS EVENING THE PT WAS STILL RUNNING IVF BUT IS EATING AND DRINKING WELL. ORDER RECIEVED TO DC IVF. ALSO SPOKE ABOUT LABS. PT HAS BEEN GETTING PO POTASSIUM 40MEQ BID AND THERE HAVE BEEN NO LABS SINCE THE . OK TO GIVE EVENING POTASSIUM. PT IN BED, CALL LIGHT IN REACH NO S&S OF DISTRESS NOTED AT THE TIME OF BEDSIDE REPORT.
[2023-03-01 19:40] VITALS: BP 125/76
[2023-03-02 05:18] VITALS: BP 123/77
--- NOTE | 2023-03-02 06:11 | NUR ---
SHIFT SUMMARY PT IS ALERT AND ORIENTED TO PERSON, PLACE AND SELF. PT IS DELUSIONAL AND CONFUSED AT TIME. PT C/O PAIN AND INSOMNIA; MEDICATED PER EMAR. PT SLEPT OFF AND ON T/O WITH RESPIRATIONS EVEN AND UNLABORED. PT DENIES CHEST PAIN/PRESSURE/TIGHTNESS. PT IS PLEASANT AND COOPERATIVE WITH CARE. BED IS LOCKED IN THE LOWEST POSITION WITH CALL LIGHT IN REACH. NO S/S OF DISTRESS NOTED.
[2023-03-02 08:06] VITALS: BP 125/87
[2023-03-02 17:19] VITALS: BP 136/83
--- NOTE | 2023-03-02 17:52 | NUR ---
SHIFT SUMMARY Pt remains A&O x2-3 this shift. Confused at times, hyperverbal. VSS. Resp even nonlabored. Gen pain managed with po Tylenol. Purewick in place with yellow output. Dressings to wounds CDI. IV infiltrate this am. Telephone orders from Dr. Rowland No IV needed. Repositioned in bed this shift. Safety maintained. Call light in reach. Will continue to monitor this shift.
[2023-03-02 23:32] VITALS: BP 104/73
[2023-03-03] VITALS (9 sets, daily range): BP systolic 100–125; BP diastolic 62–81
--- NOTE | 2023-03-03 06:40 | NUR ---
SHIFT SUMMARY NO CHANGES NOTED THROUGH THE NIGHT, VSS, ON RA, RESP UNLABORED, PT WAS COOPERATIVE W/CARE, Q2 REPOSITONING, PURE WICK IN PLACE, URINE OUTPUT WNL, TOLERATING PO INTAKE, CALL LIGHT IN REACH
--- NOTE | 2023-03-03 18:09 | NUR ---
SHIFT SUMMARY: GIUSEPPE IS A&O, DELUSIONS NOTED. PT HAS BEEN PLEASANT AND COOPERATIVE THIS SHIFT. SHE IS TOLERATING PO INTAKE WELL, DENIES IMPROVEMENT IN PAIN LEVEL WITH MEDICATIONS PER MAR. ATTENDS AND PUREWICK IN PLACE. SHE USES THE CALL LIGHT APPROPRIATELY. SKIN MARKEDLY IMPROVED FROM THE PREVIOUS TIME THIS RN CARED FOR PT. SHE IS ABLE TO MOVE HERSELF IN BED WITH MINIMAL ASSISTANCE, FEEDS HERSELF INDEPENDENTLY, AND ALERTS STAFF NEEDED FOR ELIMINATION. SHE IS LYING IN BED WITH THE CALL LIGHT IN REACH. WCTM UNTIL REPORT IS GIVEN TO GRAIN CLEANER AND TRANSFER OPERATOR RN.
--- NOTE | 2023-03-03 19:26 | NUR ---
NURSE NOTE AWAKE, PUREWICK IN USE. AM RN REPORTEDD ALL DRESSINGS WERE CHANGED THIS AM. RESPS EVEN. NO NOTED S/S ACUTE DISTRESS. VERBAL RESPONSE SOMEWHAT CHILDLIKE. CALL LIGHT IN REACH.
[2023-03-04 02:57] VITALS: BP 105/84
--- NOTE | 2023-03-04 03:46 | NUR ---
BIOMATHEMATICIAN SUMMARY VSS. BEHAVIOR AND INTERACTIONS WITH STAFF SOMEWHAT CHILDLIKE. PT REPORTEDLY DEVELOPMENTALLY DELAYED. PUREWICK IN USE AND ATTENDS ON FOR INCONTINENCE. LOOSE STOOL CONTINUES. ABLE TO REPOSITION SELF IN BED. REMAINS ON BEDREST THROUGHOUT NOCT FOR SAFETY SHE REPORTEDLY IS UNABLE TO AMBULATE, AND IS A LIFT PT. DRESSINGS OF BODY AREAS CDI. HAS BEEN RESTING QUIETLY WITH FEW INTERRUPTIONS. CALL LIGHT IN REACH. WILL CONTINUE TO MONITOR.
[2023-03-04 07:57] VITALS: BP 116/69
[2023-03-04 16:19] VITALS: BP 110/66
--- NOTE | 2023-03-04 18:45 | NUR ---
SHIFT SUMMARY PT AxOx3 WITH INTERM DELUSIONAL EXPRESSIVE LANGUAGE. PT IS PLEASANT AND COOPERATIVE WITH CARE. PT CURRENTLY AWAITING PLACEMENT FOR LTC. WOUND CARE AND DRESSING CHANGES COMPLETED TODAY. PT REQUESTING A BRA D/T FRICTION ON BREASTS NEAR HEALING WOUNDS. PT SPOKE WITH HER BROTHER ON THE PHONE TODAY TO REQUEST FOOD AND CLOTHING. PT REMAINS WEAK IN BLE WITH LIFT ASSIST FOR TRANSFERING. PT ABLE TO MOVE AROUND IN BED FAIRLY EFFICIENTLY. REMINDERS AND ASSISTED WITH Q2 TURNS. PT CURRENTLY RESTING IN BED. CALL LIGHT IN REACH. DENIES ANY NEEDS AT THIS TIME.
[2023-03-04 19:27] VITALS: BP 126/83
--- NOTE | 2023-03-05 03:14 | NUR ---
BUSINESS AND MARKETING TEACHER SUMMARY VSS. DRESSINGS CDI. TOLERATED HS MEDS WELL. 2 UNITS OF INSULIN ADMIN FOR HS BLOOD SUGAR 260. ABLE TO REPOSITION SELF EASILY BUT REQUESTS ASSIST AT TIMES. CONTINUES TO INTERACT WITH STAFF WITH CHILDLIKE COMMENTS, REPORTED HX OF DEVELOPMENTALLY DELAYED. HAS BEEN RESTING QUIETLY WITH FEW INTERRUPTIONS SINCE HS. CALL LIGHT IN REACH. WILL CONTINUE TO MONITOR
[2023-03-05 04:32] VITALS: BP 110/72
[2023-03-05 07:52] VITALS: BP 124/97
[2023-03-05 08:57] LABS: BASOPHILS ABSOLUTE AUTO 0.06 K/mm3 (0.00-0.23); BASOPHILS PERCENT AUTO 1 % (0-2); EOSINOPHILS ABSOLUTE AUTO 0.63 K/mm3 (0.00-0.68); EOSINOPHILS PERCENT AUTO 6 % (0-6); Hematocrit 37.2 % (33.0-51.0); Hemoglobin 11.6 g/dL (11.5-16.0); IMMATURE GRAN ABSOLUTE AUTO 0.05 K/mm3 (0.00-0.10); IMMATURE GRAN PERCENT AUTO 1 % (0-1); LYMPHOCYTES ABSOLUTE AUTO 2.04 K/mm3 (0.84-5.20); LYMPHOCYTES PERCENT AUTO 20 % (21-46); MONOCYTES ABSOLUTE AUTO 0.59 K/mm3 (0.16-1.47); MONOCYTES PERCENT AUTO 6 % (4-13); Mean Corpuscular HGB Conc 31.2 g/dL (31.5-36.5); Mean Corpuscular Volume 83 fL (80-100); Mean Platelet Volume 8.7 fL (9.1-12.4); NEUTROPHILS ABSOLUTE AUTO 7.02 K/mm3 (1.96-9.15); NEUTROPHILS PERCENT AUTO 68 % (41-73); Platelet Count 520 K/mm3 (150-400); RDW Coefficient Variation 19.3 % (11.7-14.2); Red Blood Cell Count 4.46 M/mm3 (3.80-5.20); White Blood Cell Count 10.39 K/mm3 (4.00-11.30)
[2023-03-05 09:39] LABS: Albumin, Blood 3.1 g/dL (3.4-5.0); Albumin/Globulin Ratio 0.7 (0.8-1.8); Bilirubin, Total 0.3 mg/dL (0.1-1.0); Bun/Creatinine Ratio 52.8 (12.0-20.0); Calcium, Blood 10.2 mg/dL (8.5-10.1); Creatinine, Blood 0.53 mg/dL (0.40-1.00); Globulin, Blood 4.4 g/dL (2.2-4.0); Total Protein, Blood 7.5 g/dL (6.4-8.2)
[2023-03-05 16:31] VITALS: BP 114/75
--- NOTE | 2023-03-05 19:37 | NUR ---
SHIFT SUMMARY: PT A&O X3. PT PLEASANT AND COOPERATIVE WITH CARE. HX DEVELOPMENTALLY DELAYED BUT ABLE TO ANSWER QUESTIONS APPROPRIATELY. OCCASIONALLY GOES OFF ON TANGENTS. NO ACUTE CHANGES THIS SHIFT. PT WORKED WITH PT/OT THIS SHIFT. 5/10 GENERAL PAIN. MEDS PROVIDED PER EMAR. CALL LIGHT IN REACH. BED IN LOWEST POSITION. REPORT GIVEN TO ONCOMING RN.
[2023-03-05 19:48] VITALS: BP 134/74
--- NOTE | 2023-03-06 03:41 | NUR ---
SUMMARY- PT ALERT TO SELF AND PLACE. BEDREST, INCONT B/B, USING PUREWIK. DRESSINGS INTACT TO OPEN AREAS. PT TOLERATING FOOD AND FLUIDS. APPEARED TO HAVE SLEPT MOST OF THE NIGHT. WILL REPORT TO DAY RN
[2023-03-06 05:40] VITALS: BP 105/80
[2023-03-06 07:23] VITALS: BP 125/87
[2023-03-06 16:25] VITALS: BP 112/78
--- NOTE | 2023-03-06 18:02 | NUR ---
SHIFT SUMMARY: PT A&O X2-3. PT WILL OCCASIONALLY GO OFF ON TANGENTS. BANDAGES CHANGED THIS SHIFT ON L. HIP, R. BREAST, AND BACK. PUREWICK REMAINS IN PLACE. PT C/O PAIN THROUGHOUT. MEDICATED PER EMAR. ROTATE Q2. WORKED WITH PT/OT THIS SHIFT. CALL LIGHT IN REACH. BED IN LOWEST POSITION. WILL CONTINUE TO MONITOR.
[2023-03-06 20:22] VITALS: BP 143/68
--- NOTE | 2023-03-07 06:04 | NUR ---
SHIFT SUMMARY: NO ACUTE EVENTS. REQUESTED PAIN MEDICATION AND MELATONIN BEFORE HS. HAS PUREWICK IN PLACE FOR URINE. NO BM THIS SHIFT. SLEPT ALL NIGHT.
[2023-03-07 07:24] VITALS: BP 112/86
--- NOTE | 2023-03-07 07:30 | NUR ---
ASSUMED CARE: PT RESTING IN BED AT THIS TIME. BEATER ENGINEER AT BEDSIDE. NO ACUTE NEEDS OR CONCERNS AT THIS TIME.
--- NOTE | 2023-03-07 19:16 | NUR ---
SHIFT SUMMARY: PT HAS REMAINED IN BED THIS SHIFT WITH FREQUENT REPOSITIONING. AWAITING PLACEMENT FOR DC. PLEASANT AND COOPERATIVE BUT NOT ALWAYS ORIENTED OR APPROPRIATE TO SITUATION. NO ACUTE NEEDS OR CONCERNS AT THIS TIME.
[2023-03-07 20:01] VITALS: BP 126/85
--- NOTE | 2023-03-08 03:03 | NUR ---
SEA CAPTAIN SUMMARY VSS. HS ACCU CHECK 296, COVERAGE OF INSULIN GIVEN. REQUESTED AND RECEIVED PAIN MED, AND SLEEP MED. HAS BEEN RESTING QUIETLY WITH FEW INTERRUTPIONS SINCE. DRESSINGS CONTINUE TO COVER AREAS PT TENDS TO SCRATCH AT. NO NOTED CURRENT OPENINGS OF SKIN. PUREWICK IN USE. ABLE TO CALL FOR ASSIST IF NEEDS TO HAVE BM. CALL LIGHT IN REACH. WILL CONTINUE TO MONITOR.
[2023-03-08 05:29] VITALS: BP 119/78
[2023-03-08 07:14] VITALS: BP 117/75
[2023-03-08 16:07] VITALS: BP 94/72
--- NOTE | 2023-03-08 18:42 | NUR ---
SUMMARY- AAOX2. X1-2 ASSIST. ALL PT'S DRESSINGS (X4) CHANGED THIS SHIFT. PT STAYED IN BED ALL SHIFT. PT DID STAND FOR PT.
--- NOTE | 2023-03-09 03:16 | NUR ---
END OF SHIFT SUMMARY NO EVENTS OVERNIGHT. PT SLEEPING WELL, COMPLIANT WITH ALL HS MEDICATIONS. PRN TRAMADOL GIVEN FOR C/O GENERALIZED PAIN. PRN EFFECTIVE PT APPEARED TO BE RESTING COMFORTABLY IN BED. PURE-WICK IN PLACE. WOUND CARE WAS COMPLETED ON DAY SHIFT. VSS, AFEBRILE. PT CALM AND PLEASANT WITH CARE PROVIDED. CALL LIGHT WITHIN REACH, WCTM.
[2023-03-09 03:30] VITALS: BP 119/77
[2023-03-09 07:16] VITALS: BP 131/88
[2023-03-09 08:01] LABS: BASOPHILS ABSOLUTE AUTO 0.05 K/mm3 (0.00-0.23); BASOPHILS PERCENT AUTO 1 % (0-2); EOSINOPHILS ABSOLUTE AUTO 0.64 K/mm3 (0.00-0.68); EOSINOPHILS PERCENT AUTO 8 % (0-6); Hematocrit 36.3 % (33.0-51.0); Hemoglobin 11.2 g/dL (11.5-16.0); IMMATURE GRAN ABSOLUTE AUTO 0.04 K/mm3 (0.00-0.10); IMMATURE GRAN PERCENT AUTO 1 % (0-1); LYMPHOCYTES PERCENT AUTO 24 % (21-46); MONOCYTES PERCENT AUTO 6 % (4-13); Mean Corpuscular HGB 25.7 pg (26.0-34.0); Mean Corpuscular HGB Conc 30.9 g/dL (31.5-36.5); Mean Corpuscular Volume 83 fL (80-100); NEUTROPHILS PERCENT AUTO 61 % (41-73); Platelet Count 511 K/mm3 (150-400); RDW Standard Deviation 54.6 fL (35.1-46.3); Red Blood Cell Count 4.36 M/mm3 (3.80-5.20); White Blood Cell Count 8.23 K/mm3 (4.00-11.30)
[2023-03-09 08:22] LABS: Bun/Creatinine Ratio 55.1 (12.0-20.0); Calcium, Blood 9.8 mg/dL (8.5-10.1); Creatinine, Blood 0.53 mg/dL (0.40-1.00); Potassium, Blood 3.7 mmol/L (3.5-5.5)
[2023-03-09 14:54] VITALS: BP 127/80
--- NOTE | 2023-03-09 18:20 | NUR ---
NO ACUTE CHANGES, PATIENT PLEASANT ALL DAY, NO IV ACESS, REPOSTIONED SELF IN BED, CONTINENT WITH BED WADE, VSS, PLACEMENT BEING WORKED ON SNF VS FOSTERCARE, PATIENT AGREEABLE TO EITHER, WILL RELAY TO PM RN
[2023-03-09 19:40] VITALS: BP 100/71
[2023-03-10 04:11] VITALS: BP 125/88
--- NOTE | 2023-03-10 06:21 | NUR ---
Shift Summary Pt c/o some dizzyness, slept well t/o the night. Rcvd Tramadol for what she described as 10/10 all over pain before bed, but she was not in any visible distress. She is satisfied with current pain management. Awaiting placement.
[2023-03-10 07:58] VITALS: BP 118/78
[2023-03-10 17:10] VITALS: BP 110/79
--- NOTE | 2023-03-10 17:34 | NUR ---
NO ACUTE CHANGES, PATIENT DEMANDING MORE FLUIDS, PATIENT HOARDING COFFEE AND FLUIDS, CONTINUES TO RATE PAIN 10/10, PAIN SCALE EDUCATED TO PATIENT, PATIENT FALLS ASLEEP AFTER RATING PAIN 10/10, PT ORDERED FOR PATIENT, NO PT HAS WORKED WITH PATIENT SINCE Sunday03/08/23, PATIENT REFUSING TO STAND AT THE EDGE OF BED. MEDICATED WITH TRAMADOL X2 THROUGH OUT THE DAY, WILL RELAY TO PM RN
[2023-03-10 19:37] VITALS: BP 125/72
--- NOTE | 2023-03-11 03:30 | NUR ---
SUMMARY- PT A/O X2-3, PLEASANTLY CONFUSED, COOPERATIVE. KNOWS LIMITS, USES CALL LIGTH. PUREWIK IN USE. DRESSINGS INTACT. MICONAZOLE POWDER TO GROIN YEAST; RESOLVING. TOLERATING FOOD AND FLUIDS. TRAMADOL HS FOR LEG PAIN. PT APPEARS TO HAVE SLEPT ALL NIGHT.
[2023-03-11 04:25] VITALS: BP 110/87
[2023-03-11 08:08] VITALS: BP 107/72
[2023-03-11 16:36] VITALS: BP 124/68
--- NOTE | 2023-03-11 17:46 | NUR ---
MAKES NEEDS KNOWN SCHIZO AFFECTIVE DISORDER, GRADIOUS HALLUCINATIONS AT TIMES, DEFENSIVE TO CARE AT TIMES, NO IV ACCESS, ASKS FOR THE BED PAIN CONTINENT/INCONTINENT, STARTED METFORMIN TODAY, MEDICATED FOR PAIN X1, [facility] HAS ACCEPTED PATIENT, POSSIBLE DISCHARGE TO SNF TOMORROW, WILL RELAY TO PM RN
[2023-03-11 19:22] VITALS: BP 123/88
--- NOTE | 2023-03-12 03:40 | NUR ---
SUMMARY- PT ALERT TO SELF AND PLACE. PLEASANTLY CONFUSED, COOPERATIVE IN CARE. PT MEDICATED WITH TRAMADOL HS FOR C/O BACK AND LEG PAIN. APPLIED MICONAZOLE TO SAM REGION, YEAST APPEARS CLEARED. MEPILEX INTACT TO BREAST AND REAPPLIED TO BACK. PT TOLERATING FLUIDS AND PLANTY OF URING OUTPUT VIA PUREWICK. USES CALL LIGHT TO MAKE NEEDS KNOWN. LIKELY DC TO [facility] TODAY. WILL REPORT TO DAY RN
[2023-03-12 05:32] VITALS: BP 111/75
[2023-03-12 07:20] VITALS: BP 119/81
[2023-03-12 15:56] VITALS: BP 116/74
--- NOTE | 2023-03-12 18:47 | NUR ---
SHIFT SUMMARY PT AXO, IRRITABLE WITH CARE. VSS. PT COMPLAINED THROUGHOUT THE SHIFT AND AT THE END OF SHIFT SHOWED THIS NURSE A LARGE PACK OF CHEESE IN HER SIDE TABLE THAT HER BROTHER DROPPED OFF FOR HER. THIS NURSE NOT ABLE TO PUT THE BAG IN THE FRIDGE BUT PUT THE BAG OF CHEESE IN A BASIN WITH ICE AND ENCOURAGED HER TO CALL HER BROTHER TO PICK IT BACK UP AND TAKE IT HOME. DRESSINGS TO BILATERAL BREASTS CHANGED. BED IN LOW POSITION, CALL LIGHT WITHIN REACH. PT'S MEDICATION BAG TAKEN FROM NIGHT STAND WHERE PT COULD REACH IT AND PLACED IN CLOSET. PT MEDICATED FOR PAIN PER EMAR.
[2023-03-12 20:03] VITALS: BP 133/78
--- NOTE | 2023-03-13 04:33 | NUR ---
SUMMARY- PT A/O X2- DEPENDANT IN ADL'S,. CURRENT ON BEDREST, APPEARS TO HAVE SLEPT WELL THROUGH THE NIGHT. USES CALL LIGHT TO MAKE NEEDS KNOWN. TOLERATING FLUIDS. USING PUREWIK FOR INCONT VOIDS. SKIN IN SAM AREA HEALED, USING POWDER PREVENTATIVELY. [facility]END[facility] PAPERWORK COMPLETION FOR [facility]. WILL REPORT TO DAY RN
[2023-03-13 05:37] VITALS: BP 126/84
[2023-03-13 08:33] VITALS: BP 117/88
[2023-03-13 15:48] VITALS: BP 122/89
--- NOTE | 2023-03-13 18:40 | NUR ---
SHIFT SUMMARY: PT A/O X 4, BEDREST. PLEASANT AND COOPERATIVE WITH CARE. PT DID HAVE 3 BM'S TODAY WITH ONE LOOSE STOOL. NO FURTHER EPISODES OF DIARRHEA. PT HAS SORE ON R SIDE OF FACE THAT IS DIME SIZE WITH PINPOINT BLACK HEAD. PT REPORTS PAIN AROUND THIS AREA AND DID APPEAR TO BE GETTING REDDER AROUND THE AREA. PT REPORTS SHE HAS BEEN "TRYING TO SQUEEZE AND POP IT." PT EDUCATED AND ASKED NOT TO TRY AND POP IT. PT DOES HAVE BACK PAIN, PT PAIN MANAGED WITH CURRENT PAIN MEDICATIONS TRAMADOL AND TYLENOL. NO OTHER COMPLAINTS FROM PT. SHE IS EATING WELL. BLOOD SUGARS MANAGED.
[2023-03-13 19:12] VITALS: BP 100/68
[2023-03-14 03:29] VITALS: BP 104/71
--- NOTE | 2023-03-14 06:19 | NUR ---
SHIFT SUMMARY NOC PT A/O X 3-4. PLEASANT AND COOPERATIVE WITH CARE. NO ACUTE CHANGES TO REPORT. PT MEPILEX DRESSINGS ON R UPPER BACK AND UNDER BOTH BREASTS C/D/I. PT AWAITING PLACEMENT @ [facility] FOR LTC. PT IS CURRENTLY RESTING WITH BED IN LOWEST POSITION, AND CALL LIGHT WITHIN REACH.
[2023-03-14 07:16] VITALS: BP 114/82
[2023-03-14] MEDS ORDERED: Acetaminophen650 M1 PO (11:42)
[2023-03-14] MEDS ORDERED: JUVEN PACKET1 EAC3 PO (11:42)
[2023-03-14] MEDS ORDERED: ASPI81CH PO (11:43)
[2023-03-14] MEDS ORDERED: SEMGLEE (Y100 UNIT/2 SC (11:46)
[2023-03-14] MEDS ORDERED: MECL25 PO (11:50)
[2023-03-14] MEDS ORDERED: HUMALOG KW100 UNIT/1 (11:50)
[2023-03-14] MEDS ORDERED: MELATONIN5 M1 PO (11:53)
[2023-03-14] MEDS ORDERED: HYDROSEPTINE O100 GM TOP (11:56)
[2023-03-14] MEDS ORDERED: MICONAZOLE NITR85 GM TOP (11:58)
[2023-03-14] MEDS ORDERED: MULTIVITAM PO (12:04)
[2023-03-14] MEDS ORDERED: QUET100 PO (12:09)
[2023-03-14] MEDS ORDERED: K-Dur10 MEQ PO (12:09)
[2023-03-14] MEDS ORDERED: TRAM50 PO (12:10)
[2023-03-14] MEDS ORDERED: VISBIOME 112.51 EACH PO (12:12)
[2023-03-14 12:24] LABS: SARS-Cov-2 (COVID-19) PCR, MMC NEGATIVE (NEGATIVE)
--- NOTE | 2023-03-14 14:40 | NUR ---
PT DISCHARGED FROM THE UNIT. TRANSPORT TOOK PT TO [facility]. REPORT CALLED TO MARYAM.
== END 2023-03-14 13:25 | DRG 872 ==
LOC: ER 19:48 → PCU 02-21 02:14 → MEDS 02-21 02:14 → PCU 02-21 03:03 → MEDS 02-21 11:50 → ENPENDDIS 03-14 11:07 → MEDS 03-14 13:25
PROVIDERS: Family Medicine; Internal Medicine; Student in an Organized Health Care Education/Training Program; ADMIT Internal Medicine
DX: A41.51 Sepsis due to Escherichia coli [E. coli] (principal); N39.0 Urinary tract infection, site not specified; L02.811 Cutaneous abscess of head [any part, except face]; E87.6 Hypokalemia; K21.9 Gastro-esophageal reflux disease without esophagitis; R62.50 Unspecified lack of expected normal physiological development in childhood; F22 Delusional disorders; I10 Essential (primary) hypertension; R54 Age-related physical debility; L83 Acanthosis nigricans; D64.9 Anemia, unspecified; D75.839 Thrombocytosis, unspecified; I25.10 Atherosclerotic heart disease of native coronary artery without angina pectoris; E11.42 Type 2 diabetes mellitus with diabetic polyneuropathy; B35.1 Tinea unguium; F17.210 Nicotine dependence, cigarettes, uncomplicated; M47.816 Spondylosis without myelopathy or radiculopathy, lumbar region; Z20.822 Contact with and (suspected) exposure to COVID-19; E78.5 Hyperlipidemia, unspecified; I25.2 Old myocardial infarction; Z98.890 Other specified postprocedural states; W19.XXXA Unspecified fall, initial encounter; Z88.0 Allergy status to penicillin; Z79.899 Other long term (current) drug therapy; Z91.81 History of falling
CPT/HCPCS: 0241U; 36415; 70450; 71046; 80048; 80053; 81001; 82947; 83036; 83605; 83690; 83735; 84100; 84443; 84484; 85025; 85610; 85730; 87040; 87077; 87086; 87186; 93005; 93010; 94760; 96361-59; 96365-59; 96366-59; 96368; 97110; 97162; 97166; 97530; 97535; 99285-25; A9270; J0690; J0696; J1650; J1815; J3475; J3480; J7030; U0002

== ENCOUNTER → 2024-12-17 | Outpatient (CLI) | payer OTHER ==
[~2024-12-17] MED LIST changes: +ALOGLIPTIN25 M7 PO; +ASPI81CH PO; +ATOR80 PO; +Acetaminophen650 M1 PO; +HUMALOG KW100 UNIT/1; +HYDROSEPTINE O100 GM TOP; +JUVEN PACKET1 EAC3 PO; +K-Dur10 MEQ PO; +LOSA50 PO; +MECL25 PO; +MELATONIN5 M1 PO; +METF500 PO; +METO25ER PO; +MICONAZOLE NITR85 GM TOP; +MULTIVITAM PO; +OMEP20ER PO; +QUET100 PO; +SEMGLEE (Y100 UNIT/2 SC; +TRAM50 PO; +VISBIOME 112.51 EACH PO
[2024-12-17 17:41] LABS: Creatinine, Urine Random 41.90 mg/dL (27.00-270.00)
[2024-12-17 17:52] LABS: Microalb/Creat Ratio UR, Rand Unable to Calculate mg/g (0.000-30.000); Microalbumin, Random Urine <5.000 mg/L (0.000-20.000)
== END | disposition home or self-care (01) ==
LOC: LAB 09:20 → LAB SHORT 09:20
PROVIDERS: Physician Assistant
DX: E11.51 Type 2 diabetes mellitus with diabetic peripheral angiopathy without gangrene (principal); E11.59 Type 2 diabetes mellitus with other circulatory complications; E11.69 Type 2 diabetes mellitus with other specified complication; Z79.4 Long term (current) use of insulin
CPT/HCPCS: 82043; 82570

== ENCOUNTER → 2024-12-22 | Outpatient (CLI) | payer OTHER | LOC: LAB 15:28 → LAB SHORT 15:28 | PROVIDERS: Physician Assistant | DX: Z01.419 Encounter for gynecological examination (general) (routine) without abnormal findings (principal) | CPT/HCPCS: 87624; G0123 ==